=== PATIENT | female | born 1970 | race African-American/Black ===

== ENCOUNTER → 2017-07-17 16:00 | Outpatient (CLI) | payer BC | END | disposition home or self-care (01) | LOC: D.MAMMO 13:00 | DX: Z12.31 Encounter for screening mammogram for malignant neoplasm of breast (principal) ==

== ENCOUNTER → 2018-07-15 08:00 | Outpatient (CLI) | payer BC | END | disposition home or self-care (01) | LOC: D.MAMMO 08:00 | DX: Z12.31 Encounter for screening mammogram for malignant neoplasm of breast (principal) ==

== ENCOUNTER → 2018-08-12 17:17 | Outpatient (CLI) | payer BC | END | disposition home or self-care (01) | LOC: D.MAMMO 14:30 | DX: R92.8 Other abnormal and inconclusive findings on diagnostic imaging of breast (principal) ==

== ENCOUNTER → 2019-02-09 19:00 | Outpatient (CLI) | payer MEDICARE | END | disposition home or self-care (01) | LOC: D.MAMMO 09:00 | PROVIDERS: ATTEND Family Medicine | DX: R92.8 Other abnormal and inconclusive findings on diagnostic imaging of breast (principal) ==

== ENCOUNTER 2019-06-23 10:14 | Emergency (ER) | payer MEDICARE ==
[~2019-06-23] VITALS: Ht 170.2 cm; Wt 90.9 kg
[2019-06-23 10:15] VITALS: Ht 170.2 cm; Wt 90.9 kg
[2019-06-23 10:43] LABS: BASOPHILS 0.5 % (0-2); EOSINOPHILS 5.7 % (0-7); HEMATOCRIT 44.3 % (36.0-48.0); HEMOGLOBIN 14.3 g/dL (12-16); LYMPHOCYTES 28.5 % (15-50); MCH 29.4 pg (26.0-34.0); MCHC 32.3 g/dL (31.0-37.0); MEAN PLATELET VOLUME 8.8 fL (7.4-10.4); MONOCYTES 9.4 % (2-11); NEUTROPHILS 55.9 % (40-80); PLATELET COUNT 236 10x3/uL (130-400); RBC 4.87 10x6/uL (4.00-5.40); RDW 13.8 % (11.5-14.5); WBC 3.8 10x3/uL (4.8-10.8)
[2019-06-23 10:56] LABS: CALC OSMOLALITY 276 mosm/kg (275-300); CALCIUM 8.9 mg/dL (8.5-10.1); CARBON DIOXIDE 27.7 mmol/L (21.0-32.0); CHLORIDE - SERUM 103 mmol/L (98-107); CREATININE - SERUM 0.7 mg/dL (0.6-1.3); GLUCOSE 91 mg/dL (74-106); POTASSIUM - SERUM 4.1 mmol/L (3.5-5.1); SODIUM 139 mmol/L (136-145); UREA NITROGEN 11 mg/dL (7-18); eGFR NON AFRICAN AMERICAN > 90 mL/min (90-120)
[2019-06-23 11:02] LABS: APPEARANCE CLEAR (CLEAR); BILIRUBIN NEGATIVE (NEGATIVE); COLOR YELLOW (YELLOW); GLUCOSE NEGATIVE (NEGATIVE); KETONE NEGATIVE (NEGATIVE); NITRITE NEGATIVE (NEGATIVE); PROTEIN NEGATIVE (NEGATIVE); UROBILINOGEN NORMAL (NORMAL)
[2019-06-23 11:02] LABS: ALBUMIN 3.9 g/dL (3.4-5.0); ALKALINE PHOSPHATASE 78 U/L (46-116); ALT (SGPT) 43 U/L (10-68); AMYLASE - SERUM 62 U/L (25-115); BILIRUBIN - TOTAL 0.43 mg/dL (0.2-1.3); LIPASE 78 U/L (73-393); PROTEIN - SERUM 7.9 g/dL (6.4-8.2)
[2019-06-23 11:03] LABS: TROPONIN-I < 0.017 ng/mL (0.000-0.060)
[2019-06-23 11:05] LABS: BACTERIA MANY /hpf (NEGATIVE); EPITHELIAL CELLS 0-5 /hpf (0-5); RED CELLS - URINE 0-5 /hpf (0-5); WHITE CELLS - URINE 0-5 /hpf (NEGATIVE)
[2019-06-23 11:39] VITALS: BP 129/86
[2019-06-24] MEDS ORDERED: ZOFRAN4 MG PO (20:49)
== END 2019-06-23 11:40 | disposition home or self-care (01) ==
LOC: D.ER 10:14
PROVIDERS: Family Medicine
DX: A59.9 Trichomoniasis, unspecified (principal)

== ENCOUNTER 2019-06-24 17:56 | Emergency (ER) | payer MEDICARE ==
[~2019-06-24] VITALS: Ht 170.2 cm; Wt 95.5 kg
[2019-06-24 18:23] VITALS: Ht 170.2 cm; Wt 95.5 kg
[2019-06-24 18:48] LABS: BASOPHILS 0.2 % (0-2); EOSINOPHILS 3.3 % (0-7); HEMATOCRIT 41.9 % (36.0-48.0); HEMOGLOBIN 13.9 g/dL (12-16); IMMATURE GRANULOCYTES 0.2 % (0-5); LYMPHOCYTES 32.9 % (15-50); MCH 29.5 pg (26.0-34.0); MCHC 33.2 g/dL (31.0-37.0); MEAN PLATELET VOLUME 8.8 fL (7.4-10.4); MONOCYTES 11.8 % (2-11); NEUTROPHILS 51.6 % (40-80); PLATELET COUNT 226 10x3/uL (130-400); RBC 4.71 10x6/uL (4.00-5.40); RDW 13.6 % (11.5-14.5); WBC 4.2 10x3/uL (4.8-10.8)
[2019-06-24 19:03] LABS: CALC OSMOLALITY 277 mosm/kg (275-300); CALCIUM 8.8 mg/dL (8.5-10.1); CARBON DIOXIDE 26.5 mmol/L (21.0-32.0); CHLORIDE - SERUM 104 mmol/L (98-107); CREATININE - SERUM 0.7 mg/dL (0.6-1.3); GLUCOSE 99 mg/dL (74-106); POTASSIUM - SERUM 3.5 mmol/L (3.5-5.1); SODIUM 139 mmol/L (136-145); UREA NITROGEN 12 mg/dL (7-18); eGFR NON AFRICAN AMERICAN > 90 mL/min (90-120)
[2019-06-24 19:11] LABS: ALBUMIN 3.5 g/dL (3.4-5.0); ALKALINE PHOSPHATASE 70 U/L (46-116); ALT (SGPT) 42 U/L (10-68); AMYLASE - SERUM 48 U/L (25-115); BILIRUBIN - TOTAL 0.27 mg/dL (0.2-1.3); LIPASE 56 U/L (73-393); PROTEIN - SERUM 7.6 g/dL (6.4-8.2); TROPONIN-I < 0.017 ng/mL (0.000-0.060)
[2019-06-24] MEDS ORDERED: ZOFRAN4 MG PO (20:49)
[2019-06-24 21:20] VITALS: BP 130/91
== END 2019-06-24 21:20 | disposition home or self-care (01) ==
LOC: D.ER 17:56
PROVIDERS: Family Medicine
DX: R10.10 Upper abdominal pain, unspecified (principal); R11.0 Nausea

== ENCOUNTER 2020-11-19 13:30 | Outpatient (CLI) | payer OTHER ==
[2019-06-24 18:23] VITALS: BMI 32.9
[~2020-11-19 13:30] MED LIST: ZOFRAN4 MG PO
== END 2020-11-19 23:59 | disposition home or self-care (01) ==
LOC: D.MAMMO 13:30
PROVIDERS: ATTEND Family Medicine
DX: Z12.31 Encounter for screening mammogram for malignant neoplasm of breast (principal)